=== PATIENT | female | born 1980 | race Caucasian/White ===

== ENCOUNTER → 2019-06-23 | Outpatient (CLI) | payer OTHER ==
[~2019-06-23] MED LIST: ALPR0.25 PO; ASPI-496 PO; BUPR300T49 PO; BUSP10TA PO; DOCU-131 PO; ENOX40SY4 SQ; GABA800T5 PO; IBUP-1222 PO; LABE200T6 PO; LABE300T2 PO; METF10002 PO; METF500T17 PO; NIFE10CA49 PO; OXYC-302 PO; PREN-1 PO; PRIM50TA34 PO
[2019-06-23 16:24] LABS: BASOPHILS # (AUTO) 0.02 x10^3/uL (0-0.1); BASOPHILS % (AUTO) 0 % (0-1); EOSINOPHILS # (AUTO) 0.09 x10^3/uL (0-0.4); EOSINOPHILS % (AUTO) 2 % (1-7); LYMPHOCYTES # (AUTO) 1.74 x10^3/uL (1-3.4); LYMPHOCYTES % (AUTO) 34 % (22-44); MD NO; MEAN CORPUSCULAR HEMOGLOBIN 27.6 pg (27.0-34.8); MEAN CORPUSCULAR HGB CONC 32.1 g/dL (32.4-35.8); MEAN CORPUSCULAR VOLUME 85.8 fL (80-100); MEAN PLATELET VOLUME 8.4 fL (7.4-10.4); MONOCYTES # (AUTO) 0.39 x10^3/uL (0.2-0.8); MONOCYTES % (AUTO) 8 % (2-9); NEUTROPHILS # (AUTO) 2.85 x10^3/uL (1.8-6.8); NEUTROPHILS % (AUTO) 56 % (42-75); PLATELET COUNT 296 x10^3/uL (130-400); RED CELL DISTRIBUTION WIDTH 14.3 % (9.6-15.2)
[2019-06-23 16:36] LABS: MICROSCOPIC NOT IND
[2019-06-23 16:38] LABS: ALBUMIN 3.9 g/dL (3.4-5.0); ANION GAP 4 mmol/L (5-15); CALCIUM 8.9 mg/dL (8.5-10.1); CHLORIDE 108 mmol/L (98-107)
[2019-06-23 16:41] LABS: CULTURE INDICATED? NO
[2019-06-23 16:45] LABS: ALANINE AMINOTRANSFERASE 17 U/L (12-78); ALKALINE PHOSPHATASE 48 U/L (45-117); BILIRUBIN,TOTAL 0.6 mg/dL (0.2-1.0); CREATININE 0.71 mg/dL (0.55-1.02); TOTAL PROTEIN 7.4 g/dL (6.4-8.2)
== END | disposition home or self-care (01) ==
LOC: STAR 15:51
PROVIDERS: ATTEND Obstetrics & Gynecology
DX: E28.2 Polycystic ovarian syndrome (principal); I26.99 Other pulmonary embolism without acute cor pulmonale
CPT/HCPCS: 36415; 71046; 80053; 81003; 84702; 85025

== ENCOUNTER 2019-06-29 13:41 | Inpatient (IN) | payer OTHER ==
[~2019-06-29] VITALS: Ht 160 cm; Wt 71.9 kg
[2019-06-29] MEDS ORDERED: LACTATED RINGERS 1,000 ML IV SCH ×2 (13:54→14:22)
[2019-06-29] MEDS ORDERED: MIDAZOLAM 1 MG/ML, 2ML ONE (13:58)
[2019-06-29] MEDS ORDERED: FENTANYL PF 250 MCG/5ML ONE (13:59)
[2019-06-29] MEDS ORDERED: SUCCINYLCHOLINE 20 MG/ML, 10ML ONE (14:00)
[2019-06-29] MEDS ORDERED: GLYCOPYRROLATE 0.2MG/1ML, 5ML ONE (14:00)
[2019-06-29] MEDS ORDERED: HYDROmorphone 2 MG/ML, 1ML IVPush PRN ×2 (14:00→15:30)
[2019-06-29] MEDS ORDERED: NEOSTIGMINE 1 MG/ML, 10ML ONE (14:00)
[2019-06-29] MEDS ORDERED: ONDANSETRON 2MG/ML, 2ML IV PRN (14:00)
[2019-06-29] MEDS ORDERED: EPHEDRINE 50 MG/ML, 1ML IVPush PRN (14:00)
[2019-06-29] MEDS ORDERED: ROCURONIUM 10MG/ML,5ML ONE (14:00)
[2019-06-29] MEDS ORDERED: PROPOFOL 10 MG/ML, 20ML ONE ×2 (14:00)
[2019-06-29] MEDS ORDERED: FENTANYL PF 100 MCG/2ML IV PRN (14:00)
[2019-06-29] MEDS ORDERED: hydrALAzine 20 MG/ML, 1ML IV PRN ×2 (14:00→15:30)
[2019-06-29] MEDS ORDERED: OXYcodone 5 MG/5 ML ORAL.SOL UDC PO PRN ×2 (14:00→15:30)
[2019-06-29] MEDS ORDERED: DEXAMETHASONE 4 MG/ML, 1ML ONE (14:00)
[2019-06-29] MEDS ORDERED: PROMETHAZINE 25 MG/ML, 1ML IV PRN ×2 (14:00→15:30)
[2019-06-29] MEDS ORDERED: MEPERIDINE/PF 25MG/ML,1ML IVPush PRN ×2 (14:00→15:30)
[2019-06-29] MEDS ORDERED: ACETAMINOPHEN 500 MG TABLET PO ONE (14:00)
[2019-06-29] MEDS ORDERED: CEFAZOLIN 1,000 MG ONE (14:00)
[2019-06-29] MEDS ORDERED: GABAPENTIN 300 MG CAPSULE PO ONE (14:00)
[2019-06-29] MEDS ORDERED: ONDANSETRON 2MG/ML, 2ML ONE (14:00)
[2019-06-29] MEDS ORDERED: LABETALOL 5MG/ML, 20ML IV PRN ×2 (14:00→15:30)
[2019-06-29 14:44] LABS: HCG UR SG 1.026 (1.003-1.030)
[2019-06-29] MEDS ORDERED: BUPIVACAINE/PF 0.25% ONE (14:59)
[2019-06-29] MEDS ORDERED: EPINEPHRINE 1 MG/ML, 1ML ONE (14:59)
[2019-06-29] MEDS ORDERED: HALOPERIDOL 5 MG/ML IV PRN (15:30)
[2019-06-29] MEDS ORDERED: SODIUM CHLORIDE 0.9% PF 10ML ONE (16:06)
[2019-06-29] MEDS ORDERED: KETOROLAC 30 MG/1 ML ONE (16:06)
[2019-06-29] MEDS ORDERED: FENTANYL PF 100 MCG/2ML ONE (17:51)
[2019-06-29] MEDS ORDERED: OXYcodone 5 MG/5 ML ORAL.SOL UDC ONE (17:51)
[2019-06-29] MEDS ORDERED: ONDANSETRON 2MG/ML, 2ML IVPush PRN (18:00)
[2019-06-29] MEDS: FENTANYL PF 100 MCG/2ML IV PRN ×3 (18:00→18:20)
[2019-06-29] MEDS ORDERED: KETOROLAC 30 MG/1 ML IVPush PRN (18:00)
[2019-06-29] MEDS ORDERED: ACETAMINOPHEN 325 MG TABLET PO PRN (18:00)
[2019-06-29] MEDS ORDERED: MORPHINE SULFATE 4 MG/ML, 1ML IVPush PRN (18:00)
[2019-06-29 19:15] VITALS: BP 131/85
[2019-06-29] MEDS ORDERED: PRIMIDONE 50 MG TABLET PO SCH (22:23)
[2019-06-29] MEDS: BUSPIRONE 10 MG TABLET PO SCH (22:46)
[2019-06-29] MEDS: LABETALOL 200 MG TABLET PO SCH (22:46)
[2019-06-29] MEDS: BUPROPION 300 MG MC SCH (23:30)
[2019-06-30 01:09] VITALS: BP 125/79
[2019-06-30] MEDS: LACTATED RINGERS 1,000 ML IV SCH ×2 (01:17→08:53)
[2019-06-30 04:56] VITALS: BP 110/76
[2019-06-30] MEDS ORDERED: metFORMIN 500 MG TABLET PO SCH (08:00)
[2019-06-30 08:05] VITALS: BP 118/83
[2019-06-30] MEDS: LABETALOL 200 MG TABLET PO SCH (08:53)
[2019-06-30] MEDS: BUSPIRONE 10 MG TABLET PO SCH (08:53)
[2019-06-30] MEDS: BUPROPION 300 MG MC SCH ×2 (08:54→15:36)
[2019-06-30] MEDS ORDERED: OXYC-302 PO (10:47)
[2019-06-30] MEDS ORDERED: IBUP200T49 PO (10:47)
[2019-06-30] MEDS: OXYcodone/APAP 5/325MG TABLET PO PRN ×2 (12:29→15:49)
[2019-06-30 13:47] VITALS: BP 101/62
== END 2019-06-30 16:25 | disposition home or self-care (01) | DRG 743 ==
LOC: OR 13:41 → ORIP 17:37 → 4NE 19:07
PROVIDERS: ADMIT Obstetrics & Gynecology; ATTEND Obstetrics & Gynecology
PROC: 0UT74ZZ Resection of Bilateral Fallopian Tubes, Percutaneous Endoscopic Approach (ICD-10-PCS; 2019-06-29)
PROC: 0TJB8ZZ Inspection of Bladder, Via Natural or Artificial Opening Endoscopic (ICD-10-PCS; 2019-06-29)
PROC: 0UT94ZZ Resection of Uterus, Percutaneous Endoscopic Approach (ICD-10-PCS; principal; 2019-06-29 15:30)
DX: N92.0 Excessive and frequent menstruation with regular cycle (principal); E11.9 Type 2 diabetes mellitus without complications; G25.0 Essential tremor; F32.9 Major depressive disorder, single episode, unspecified; Z86.711 Personal history of pulmonary embolism
CPT/HCPCS: 36415; 81025; 86850; 86900; 88307; G0378; J0171; J0690; J1100; J1885; J2250; J2270; J2405; J2704; J2710; J3010; J3490; J0330; J7120